=== PATIENT | male | born 1980 | race Caucasian/White ===

== ENCOUNTER → 2021-08-20 | Outpatient (CLI) | payer BC ==
[~2021-08-20] MED LIST: OXYC-12 PO
== END | disposition home or self-care (01) ==
LOC: PREOP 08:33
PROVIDERS: ATTEND Surgery
DX: Z01.818 Encounter for other preprocedural examination (principal)

== ENCOUNTER 2021-08-27 08:39 | Day surgery (SDC) | payer BC ==
--- NOTE | 2021-08-24 16:14 | HISTORY AND PHYSICAL ---
DATE OF SERVICE: This is for date of service 08/27/2021. ATTENDING PHYSICIAN: Dr. Geovani Mosqueda. HISTORY OF PRESENT ILLNESS: The patient is a 41-year-old male, who is known to us. He was seen in 12/2013 for a pilonidal cyst and underwent an excision at that time. He was then seen in 10/2020 and did report a reoccurrence of pain of overlying the coccyx bone and reports that he did get some swelling. This did become red and painful. He was seen by his primary care physician at that time and was started on some antibiotic medication and was then referred over to us. He reports that this did drain lots of blood-tinged drainage and the pain did improve. He was at that time found to have a recurrent pilonidal cyst. He was then seen about two months ago and he did report two more episodes where the pilonidal cyst had become painful as well and did drain. He was started on antibiotics each time and it did improve. He reported at that time, he was currently taking college courses and would like to wait until this semester was finished before proceeding with surgical intervention, which we will proceed with scheduling. PAST MEDICAL HISTORY: Bipolar depression, anxiety, pilonidal cyst. PAST SURGICAL HISTORY: Pilonidal cystectomy in 2013. ALLERGIES: No known drug allergies. MEDICATIONS: Buspirone 15 mg daily, Vraylar 4.5 mg daily, bupropion 300 mg daily, hydroxyzine 25 mg p.r.n. FAMILY HISTORY: Father, diabetes, hypertension. Mother, hypertension. Maternal grandfather, colon cancer, hypertension. Paternal grandfather, hypertension. Paternal grandmother, hypertension, stroke. Maternal grandmother, hypertension. SOCIAL HISTORY: Positive for tobacco smoke for 17 years. Rare for alcohol. VITAL SIGNS: Stable. Current weight is 298.8 pounds at 6 feet 3 inches. REVIEW OF SYSTEMS: Well-nourished male in no acute distress. He is not experiencing any shortness of breath or difficulty breathing. No chest pain, palpitations or diaphoresis. No nausea, vomiting or abdominal pain. No diarrhea or constipation. No red blood per rectum. No dark tarry stools. No fever or chills. No recent inadvertent weight loss. He did report pain, redness and drainage from the gluteal cleft. All other review of systems negative. PHYSICAL EXAMINATION: CHEST: Clear. Good breath sounds bilaterally. HEART: Regular, no murmurs. EXTREMITIES: No lower extremity edema. Negative Homans sign. HEENT: No scleral icterus. NECK: No cervical lymphadenopathy. ABDOMEN: Soft, nontender, nondistended. SKIN: There are 2 sinus opening of the gluteal cleft with no active drainage. There is no pain or tenderness to palpation. NEUROLOGIC: Awake, alert and oriented x3. ASSESSMENT AND PLAN: A 41-year-old male with recurrent pilonidal cyst. At this time, he would like to proceed with excision of pilonidal cyst as well as possible cleft lift or possible flap closure. CC: Dr. Adhikari -- requested, unable to deliver. Job ID: [id number] DocumentID: [id number] Dictated Date: 08/24/2021 15:25:04 Records Management Clerk Date: 08/24/2021 16:13:47 Dictated By: PRINCESS CELAYA APRN
[2021-08-27] VITALS (11 sets, daily range): BP systolic 107–132; BP diastolic 59–87
[~2021-08-27] VITALS: Ht 190.5 cm; Wt 131.9 kg
[~2021-08-27 08:39] MED LIST changes: +BUPR300T98 PO; +BUSP15TA60 PO; +CARI4.5C PO; +HYDR-3781 PO
[2021-08-27] MEDS ORDERED: LIDOCAINE/EPI 1%-1:200,000 (XYLOCAINE) 30 ML VIAL ONE (08:45)
[2021-08-27] MEDS ORDERED: HYDR-3817 PO (08:59)
--- NOTE | 2021-08-27 08:59 | Discharge Inst-Surgical ---
D/C Lap Instructions-KIDO Reconcile Patient Problems Problems Reviewed?: Yes New, Converted, or Re-Newed RX: RX on Chart Follow Up Appt in 2 weeks Activity as tolerated No driving for 24 hours No driving while on pain medications Incentive Spirometry use every 2 hours while awake Regular Diet Symptoms to Report: Fever over 101 degree F, Nausea/Vomiting Infection Signs and Symptoms to report: Increased redness, Foul odor of wound, Increased drainage Bathing instructions: May shower Operative Area Clean/Dry; Keep incision clean/dry If any problems/questions: Contact your physician or go to Emergency Room PRINCESS CELAYA APRN Aug 27, 2021 08:59
[2021-08-27] MEDS ORDERED: morphine INJ 10 MG/ML 1ML (SYR OR VIAL) IVP PRN (09:00)
[2021-08-27] MEDS ORDERED: ONDANSETRON 4 MG/2 ML (SDV) Z0FRAN IVP PRN ×2 (09:00→11:15)
[2021-08-27] MEDS ORDERED: ACETAMINOPHEN 325 MG TABLET PO PRN (09:00)
[2021-08-27] MEDS ORDERED: HYDROcodone/APAP 5 MG/325 MG (LORTAB) TAB PO ONE (09:00)
--- NOTE | 2021-08-27 09:00 | Progress Note-Pre Operative ---
Pre-Operative Progress Note H&P Reviewed The H&P was reviewed, patient examined and no changes noted. Date Seen by Provider: Aug 27, 2021 Time Seen by Provider: 08:55 Date H&P Reviewed: Aug 27, 2021 Time H&P Reviewed: 08:50 Pre-Operative Diagnosis: Pilonidal Cyst PRINCESS CELAYA APRN Aug 27, 2021 09:00
[2021-08-27] MEDS ORDERED: MIDAZOLAM 2 MG/2 ML (VERSED) VIAL ONE (09:12)
[2021-08-27] MEDS ORDERED: proPOfol 200 MG/20 ML (DIPRIVAN) VIAL IV ONE (09:12)
[2021-08-27] MEDS ORDERED: ROCURONIUM 50 MG/5 ML (ZEMURON) VIAL IV ONE (09:12)
[2021-08-27] MEDS ORDERED: LIDOCAINE PF 2% 5 ML (XYLOCAINE) VIAL ONE (09:12)
[2021-08-27] MEDS ORDERED: fentaNYL INJ 100 MCG/2 ML AMP ONE (09:12)
[2021-08-27] MEDS ORDERED: LACTATED RINGERS 1,000 ML IV PRN (09:30)
[2021-08-27] MEDS ORDERED: ceFAZolin 2 GM IV Premixed 50 ML IV ONE (09:30)
[2021-08-27] MEDS ORDERED: NEOSTIGMINE 3 MG/3 ML VIAL ONE (10:47)
[2021-08-27] MEDS ORDERED: SEVOFLURANE (ULTANE) 15 ML INHAL SOLN ONE ×2 (10:47→11:00)
[2021-08-27] MEDS ORDERED: GLYCOPYRROLATE 0.2 MG/ML (ROBINUL) 2 ML VIAL ONE (10:47)
--- NOTE | 2021-08-27 10:51 | Progress Note-Post Operative ---
Post-Operative Progess Note Surgeon (s)/Garment Fitter (s) Surgeon JIMI DONOHUE MD Garment Fitter: jimbo green APRN Pre-Operative Diagnosis Pilonidal Cyst Post-Operative Diagnosis recurrent pilonidal cyst(5x3cm). Procedure & Operative Findings Date of Procedure 08/27/21 Procedure Performed/Findings excision recurrent pilonidal cyst with complex flap closure(5x3cm). Anesthesia Type get Estimated Blood Loss Estimated blood loss (mL): minimal Specimens/Packing Specimens Removed pilonidal cyst JIMI DONOHUE MD Aug 27, 2021 10:51
--- NOTE | 2021-08-27 11:09 | Anesthesia-General Post-Op ---
General Patient Condition Mental Status/LOC: Same as Preop Cardiovascular: Satisfactory Nausea/Vomiting: Absent Respiratory: Satisfactory Pain: Controlled Complications: Absent Post Op Complications Complications None Follow Up Care/Instructions Patient Instructions None needed. Anesthesia/Patient Condition Patient Condition Patient is doing well, no complaints, stable vital signs, no apparent adverse anesthesia problems. No complications reported per nursing. MAXINE FRAGOSO CRNA Aug 27, 2021 11:09
[2021-08-27] MEDS ORDERED: morphine INJ 10 MG/ML 1ML (SYR OR VIAL) IVP ONE (11:15)
--- NOTE | 2021-08-27 14:57 | OPERATIVE REPORT ---
DATE OF SERVICE: 08/27/2021 ATTENDING PRIMARY CARE PHYSICIAN: Dr. Geovani Mosqueda. PREOPERATIVE DIAGNOSIS: Recurrent symptomatic pilonidal cyst. POSTOPERATIVE DIAGNOSIS: Recurrent symptomatic pilonidal cyst, dimensions 5 x 3 cm in size. PROCEDURE: Excision of recurrent pilonidal cyst with a complex flap closure. SURGEON: Herminio Donohue MD PARAPROFESSIONAL AIDE: Justus Wallace APRN ANESTHESIA: General endotracheal. ESTIMATED BLOOD LOSS: Minimal. FINDINGS: Recurrent pilonidal cyst with no active skin infection. DISPOSITION: The patient tolerated the procedure well. INDICATIONS: The patient is a 41-year-old male known to us. We had seen him in 2013 for a symptomatic pilonidal cyst and underwent excision at that time. In approximately 10/2020, he reported reoccurrence overlying just superior to the previous excision site. He stated that this became red and painful and did swell and then drain on its own. He was then developed recurrent episodes of pain as well as blood-tinged drainage. He was seen in the office and found to have a recurrent pilonidal cyst. DESCRIPTION OF PROCEDURE: The patient was brought to the operating room and after adequate IV pain and sedative medications and general endotracheal intubation, the patient was placed in the prone position on the table. The buttocks were then retracted with tape and the perineum prepped and draped in standard surgical fashion. The sinus was then probed with lacrimal probes and an area was marked off approximately 5 x 3 cm in size. This was all standard towards the patient's left side to produce a cleft. We then proceeded with excision of the entirety of the pilonidal cyst using electrocautery with visualization of good hemostasis. We then proceeded with complex closure flaps bilaterally using electrocautery. The fascia was then reapproximated using 2-0 Vicryl interrupted sutures. Subcutaneous tissue was then reapproximated using 2-0 Vicryl interrupted sutures. Skin was closed using 3-0 Prolene interrupted sutures. Skin was then cleaned and covered with gauze followed by ABD, followed by mesh shorts. The patient tolerated the procedure well. We will start IV normal pain medication as well as a clear liquid diet. He will be instructed to keep the area clean and dry and to apply gauze dressing on a b.i.d. basis and to follow up in our office approximately two weeks. Job ID: [id number] DocumentID: [id number] Dictated Date: 08/27/2021 11:03:03 Mathematical Engineer Date: 08/27/2021 14:57:02 Dictated By: HERMINIO DONOHUE MD MTDD
== END 2021-08-27 13:25 | disposition home or self-care (01) ==
LOC: SDC 08:39
PROVIDERS: ATTEND Surgery
DX: L05.91 Pilonidal cyst without abscess (principal); F31.9 Bipolar disorder, unspecified; F41.9 Anxiety disorder, unspecified; F17.200 Nicotine dependence, unspecified, uncomplicated; Z98.890 Other specified postprocedural states; Z79.899 Other long term (current) drug therapy
CPT/HCPCS: 87081